=== PATIENT | female | born 1950 | race Caucasian/White ===

== ENCOUNTER 2024-09-09 11:03 | Observation (INO) ==
[~2024-09-09 11:03] MED LIST: NS 0.45% 1000 ml BAG 1,000 ML IV SCH; Naloxone 0.4 mg VIAL 0.4 mg/ml 1 ml VIAL IV PRN; Ondansetron 4 mg VIAL 2 MG/ML 2 ml VIAL IV PRN
[2024-09-09] MEDS ORDERED: ceFAZolin 2 GM PREMIX 2 GM/50 ML BAG ONE (11:22)
[2024-09-09] MEDS: Buffered Lidocaine 1% SYRIN 1 ml INTRADERM ONE (11:22)
[2024-09-09] MEDS ORDERED: Tranexamic Acid 1 GM/100ML BAG 2,000 MG/200 ML BAG IV ONE (11:25)
[2024-09-09 11:49] LABS: Rapid COVID-19 Molecular Undetected (Undetected)
[2024-09-09] MEDS: Lactated Ringers 1000 ml BAG 1,000 ML IV SCH ×2 (11:52→18:45)
[2024-09-09] MEDS ORDERED: Dexamethasone IV 4 MG/ML VIAL 1 ml VIAL ONE (11:56)
[2024-09-09] MEDS ORDERED: Ondansetron 4 mg VIAL 2 MG/ML 2 ml VIAL ONE (11:56)
[2024-09-09] MEDS ORDERED: fentaNYL 100 mcg/2 ml 50 MCG/ML VIAL ONE ×3 (12:56→17:11)
[2024-09-09] MEDS ORDERED: ROPIVACAINE 5 MG/ML 30 ML BTL (0.5%) ONE (12:56)
[2024-09-09] MEDS ORDERED: Midazolam 5 mg/5 ml VIAL 1 mg/ml 5 ml VIAL (5 mg) ONE (12:56)
[2024-09-09] MEDS ORDERED: Ropivacaine 5 MG/ML 20 ML VIAL 0.5% (100 MG) ONE (13:23)
[2024-09-09] MEDS ORDERED: Lactulose 30 ml UDC PO PRN (13:50)
[2024-09-09] MEDS ORDERED: Magnesium Hydroxide LIQ 30 ML UDC PO PRN (13:50)
[2024-09-09] MEDS ORDERED: Calcium Carb (TUMS) 500 mg CHEW TAB PO PRN (13:50)
[2024-09-09] MEDS ORDERED: Ondansetron 4 mg VIAL 2 MG/ML 2 ml VIAL IV PRN (13:50)
[2024-09-09] MEDS ORDERED: Ondansetron ODT 4 mg TAB 4 MG TAB PO PRN (13:50)
[2024-09-09] MEDS ORDERED: Morphine 2 MG/ML SYRINGE IV PRN (13:50)
[2024-09-09] MEDS ORDERED: Midazolam 2 mg/2 ml VIAL 1 mg/ml 2 ml VIAL (2 mg) ONE (14:14)
[2024-09-09] MEDS ORDERED: Lidocaine 2% PF 5 ML VIAL ONE (14:23)
[2024-09-09] MEDS ORDERED: HYDROmorphone 0.5 MG/0.5 ML SYRINGE ONE ×2 (15:04→15:39)
[2024-09-09] MEDS ORDERED: KETAMINE HCL 10 MG/ML 20 ml VIAL (200 MG) ONE (15:05)
[2024-09-09] MEDS ORDERED: HYDROmorphone 1 MG/1 ML SYRINGE IV PRN (17:05)
[2024-09-09] MEDS: fentaNYL 100 mcg/2 ml 50 MCG/ML VIAL IV PRN (17:12)
[2024-09-09] MEDS: ceFAZolin 2 GM PREMIX 2 GM/50 ML BAG IV SCH (22:04)
[2024-09-09] MEDS: Magnesium Hydroxide LIQ 30 ML UDC PO SCH (23:17)
[2024-09-10 06:43] LABS: Hematocrit 31.9 % (35-45); Platelet Count 221 10^3/uL (150-450)
[2024-09-10 07:01] LABS: Calcium 8.8 mg/dL (8.6-10.3); Creatinine, Serum 0.79 mg/dL (0.51-0.95); Potassium 4.7 mmol/L (3.5-5.0); eGFR CKD-EPI 77.5 (>60)
[2024-09-10] MEDS: Acetaminophen IV 1 GM/100ML 1,000 MG/100 ML BAG IV ONE (07:20)
[2024-09-10] MEDS: Vitamin THERAPEUTIC TAB PO SCH (09:29)
[2024-09-10] MEDS: Cholecalciferol (VIT D3) 1,000 unit TAB PO SCH (09:29)
== END 2024-09-10 15:40 | disposition home or self-care (01) ==
LOC: SSU 11:03 → OR 11:03
PROVIDERS: ADMIT Orthopaedic Surgery Adult Reconstructive Orthopaedic Surgery; ATTEND Orthopaedic Surgery Adult Reconstructive Orthopaedic Surgery